=== PATIENT | male | born 1970 | race Caucasian/White ===

== ENCOUNTER 2020-05-11 07:52 | Outpatient (NON) | payer OTHER, SELFPAY ==
[2020-05-11 11:17] LABS: Influenza Control Positive
[2020-05-11 21:57] LABS: SARS-CoV-2 RNA PCR Negative
== END 2020-05-11 07:53 ==
PROVIDERS: PCP Family Medicine; Visit Provider Physician Assistant
DX: Z20.822 Contact with and (suspected) exposure to COVID-19 (principal); J32.9 Chronic sinusitis, unspecified
CPT/HCPCS: 87804; C9803; U0003; U0005

== ENCOUNTER → 2021-11-14 08:45 | Outpatient (CLI) | payer OTHER, SELFPAY ==
--- NOTE | ~2021-11-14 | XR_ITS ---
EXAMINATION: XR chest 2V 11/14/2021 08:57 INDICATION: Screening for respiratory tuberculosis PROCEDURE: 2 view chest COMPARISON: 02/06/2019 FINDINGS: The lungs are clear. The cardiomediastinal silhouette is within normal limits. There are no pleural effusions. There is no pneumothorax suspected. IMPRESSION: 1: NO ACUTE CARDIOPULMONARY DISEASE. Reviewed, dictated and finalized at location A.
== END ==
PROVIDERS: PCP Family Medicine; Visit Provider Physician Assistant
DX: Z11.1 Encounter for screening for respiratory tuberculosis (principal)
CPT/HCPCS: 71046

== ENCOUNTER 2022-04-18 10:53 | Day surgery (SDC) | payer OTHER, SELFPAY ==
[2021-11-21 11:44] VITALS: BMI 25.4
[2022-04-05 08:14] VITALS: BMI 24.9
--- NOTE | 2022-04-17 10:26 | WPDANESEPPF ---
Anes - Initial Pre Proc Eval Procedure: Operation Date: 04/18/22 12:30 Proposed Procedures p Screening Colonoscopy - Dariel Dorsey MD Date/Time: 04/17/22 10:26 Surgeon: Dariel Dorsey MD Pre Op Diagnosis: Neoplasm Screening Patient Data Age: 51 Gender: M Height: 1.93 m Weight: 93 kg Allergies Allergy/AdvReac Type Severity Reaction Status Date / Time amoxicillin Allergy Severe Swelling Verified 04/11/22 14:39 Penicillins Allergy Severe Anaphylactic Verified 04/11/22 14:39 Shock Home Medications Medication Instructions Recorded Confirmed Type sildenafil 100 mg tablet (Viagra) 100 mg PO DAILY PRN sexual 04/11/22 04/18/22 Rx activity #30 tabs Patient hx anesthesia problems: none Family hx anesthesia problems: none Results Review: All pre-operative results and documents have been reviewed as part of the pre-operative evaluation. [facility] Past Medical History Medical History Asthma Surgical History Surgical History History of hemorrhoidectomy Family History Family History Mother Family history of malignant neoplasm Father Family history of malignant neoplasm of esophagus Social History Social History Smoking status: Never smoker Tobacco type: cigarettes Second hand tobacco smoke exposure: No Alcohol intake: current Drinks per week: 2 Alcohol use details: socially Substance use: never Substance use type: does not use Living arrangements: with family Gender identity (if verbalized by the patient): Male Spiritual care concerns: No Anes - Eval Final PreProcedure Day of Procedure 04/17/22 10:26 Patient weight: normal Heart: regular rate and rhythm Lungs: clear to auscultation and normal air movement Airway: Mallampati scale class II Neurological: alert and oriented Last oral intake: >/= 8 hours ASA classification: II Emergent: no Anesthetic plan: proceed Anesthesia type and monitoring: general GIVS and standard monitoring Results Review: All pre-operative results and documents have been reviewed as part of the pre-operative evaluation. Informed Consent: The patient's anesthetic plan and its attendant risks and benefits were discussed with the patient/family/POA. Questions were solicited and answers provided to the satisfaction of the patient/family/POA.
--- NOTE | 2022-04-18 10:36 | PM.HPGS ---
History of Present Illness History of Present Illness Consent: Risks, benefits, and alternatives have been discussed and questions answered. Patient agrees to proceed with procedure. Chief complaint: Neoplasm Screening Narrative: Supa Browne is a 51 year old male Referred for colon cancer screening. Review of Systems Review of Systems: All systems reviewed & are unremarkable except as noted in HPI and below PMFSH Past Medical History Medical History Asthma Surgical History Surgical History History of hemorrhoidectomy Family History Family History Mother Family history of malignant neoplasm Father Family history of malignant neoplasm of esophagus Social History Social History Smoking status: Never smoker Tobacco type: cigarettes Second hand tobacco smoke exposure: No Alcohol intake: current Drinks per week: 2 Alcohol use details: socially Substance use: never Substance use type: does not use Living arrangements: with family Gender identity (if verbalized by the patient): Male Spiritual care concerns: No Meds Home Medications and Allergies Home Medications Medication Instructions Recorded Confirmed Type sildenafil 100 mg tablet (Viagra) 100 mg PO DAILY PRN sexual 04/11/22 04/18/22 Rx activity #30 tabs Allergies Allergy/AdvReac Type Severity Reaction Status Date / Time amoxicillin Allergy Severe Swelling Verified 04/11/22 14:39 Penicillins Allergy Severe Anaphylactic Verified 04/11/22 14:39 Shock Exam Const: General: alert Orientation/consciousness: patient oriented x3 Resp: Auscultation: clear to auscultation bilaterally Cardio: Rhythm: regular rhythm GI: GI Palp: Yes Soft to palpation and No Tenderness to palpation present (GI) Neuro: General: patient oriented x3 Assessment and Plan Assessment and plan (1) Colon cancer screening: Code(s): Z12.11 - Encounter for screening for malignant neoplasm of colon Status: Acute Assessment and Plan: Colonoscopy with possible biopsy or polypectomy or cautery or injection of substances.
[2022-04-18 11:14] VITALS: BP 119/84; PULSE 76; RESP 16; TEMP 37.1; O2SAT 99; BMI 25.1
[2022-04-18] MEDS: LACTATED RINGERS 1,000 ML 150 ML IV CONT (11:27)
[2022-04-18 12:41] VITALS: BP 90/75; PULSE 97; RESP 13; O2SAT 97
[2022-04-18 12:51] VITALS: BP 99/76; PULSE 65; RESP 14; O2SAT 100
[2022-04-18 13:01] VITALS: BP 110/72; PULSE 65; RESP 15; O2SAT 100
--- NOTE | 2022-04-18 14:30 | WPDANESPN ---
Anes - Prog Note Post-Op Date/Time: 04/18/22 14:30 Cardiovascular status: normal Respiratory status: normal Airway patency: baseline Mental status: baseline Post-Op hydration status: normal Vital Signs: Last Vital Signs Temp 37.1 C 04/18/22 11:14 Pulse 65 04/18/22 13:01 Resp 15 04/18/22 13:01 BP 110/72 04/18/22 13:01 Pulse Ox 100 04/18/22 13:01 O2 Del Method Room Air 04/18/22 13:01 Pain Score (VAS): 0 I/O: Intake & Output 04/17/22 04/18/22 04/18/22 23:59 07:59 15:59 Intake Total 500 Balance 500 Post-procedural complaints: none Patient Feedback: Patient satisfied with anesthetic care. Other Findings: Patient vital signs back to baseline. Patient denies nausea and vomiting. Patient's pain under control. Patient OK for discharge.
== END 2022-04-18 13:23 | disposition home or self-care (01) ==
PROVIDERS: PCP Family Medicine; Visit Provider Internal Medicine Gastroenterology
PROC: 0DJD8ZZ Inspection of Lower Intestinal Tract, Via Natural or Artificial Opening Endoscopic (ICD-10-PCS; CPT 45378; principal; 2022-04-18 12:30)
DX: Z12.11 Encounter for screening for malignant neoplasm of colon (principal)
CPT/HCPCS: 45378